=== PATIENT | male | born 1955 | race Caucasian/White ===

== ENCOUNTER 2018-03-11 20:51 | Inpatient (IN) | payer OTHER ==
[~2018-03-11] VITALS: Ht 170.2 cm; Wt 78.8 kg
[2018-03-11 20:55] VITALS: BP 129/82; PULSE 120; RESP 20; O2SAT 98
[2018-03-11 21:15] VITALS: BP 138/80; PULSE 121; RESP 15; O2SAT 99
[2018-03-11 21:30] VITALS: BP 133/82; PULSE 118; RESP 18; O2SAT 99
[2018-03-11 22:00] VITALS: BP 139/83; PULSE 120; RESP 15; O2SAT 98
--- NOTE | 2018-03-11 22:17 | RADRPT ---
EXAM DATE: 03/11/2018 9:48 PM EDT AGE/SEX: 62 years / Male INDICATIONS: Trauma to chest after patient fell from roof today CLINICAL DATA: This is the patient's initial encounter. Patient reports that signs and symptoms have been present for 1 day and indicates a pain score of Nonresponsive. MEDICAL/SURGICAL HISTORY: Non-responsive. Non-responsive. COMPARISON: No prior exams available for comparison. FINDINGS: No pneumothorax. Fracture superior scapula on the right and possibly on the left. No effusion. No con solidation. Heart size within normal limits. CONCLUSION: No pneumothorax or significant effusion. Probable superior scapular fractures. Electronically signed by: Jake Thomas MD 03/11/2018 10:16 PM EDT
[2018-03-11 22:30] VITALS: BP 148/81; PULSE 120; RESP 15; O2SAT 99
[2018-03-11] MEDS ORDERED: MORPHINE SULFATE 4 MG/ML INJ IV PUSH ONE (22:30)
[2018-03-11 22:31] LABS: BASOPHIL % 0.1 % (0.0-2.0); EOSINOPHIL % 0.1 % (0.0-4.0); HEMOGLOBIN 14.7 GM/DL (13.0-17.0); LYMPH % 3.4 % (9.0-44.0); LYMPHOCYTE # 0.4 TH/MM3 (1.0-4.8); MEAN CELL VOLUME 90.5 FL (80.0-100.0); MEAN CORPUSCULAR HEMOGLOBIN 31.8 PG (27.0-34.0); MEAN CORPUSCULAR HGB CONC 35.1 % (32.0-36.0); MEAN PLATELET VOLUME 8.9 FL (7.0-11.0); MONO % 4.8 % (0.0-8.0); MONOCYTE # 0.6 TH/MM3 (0-0.9); NEUT % 91.6 % (16.0-70.0); PLATELET COUNT 207 TH/MM3 (150-450); RED BLOOD COUNT 4.63 MIL/MM3 (4.50-5.90); RED CELL DISTRIBUTION WIDTH 13.5 % (11.6-17.2); WHITE BLOOD COUNT 13.1 TH/MM3 (4.0-11.0)
[2018-03-11 22:50] LABS: ALBUMIN 3.4 GM/DL (3.4-5.0); AST (GOT) 301 U/L (15-37); BICARBONATE 18.9 MEQ/L (21.0-32.0); BLOOD UREA NITROGEN 23 MG/DL (7-18); CALCIUM 8.3 MG/DL (8.5-10.1); CHLORIDE 108 MEQ/L (98-107); CREATININE 1.01 MG/DL (0.60-1.30); GLOMERULAR FILTRATION RATE 75 ML/MIN (>89); GLUCOSE,RANDOM 110 MG/DL (74-106); SODIUM (NA) 140 MEQ/L (136-145)
[2018-03-11 22:51] LABS: ALT (GPT) 173 U/L (12-78)
[2018-03-11 22:53] LABS: ALKALINE PHOSPHATASE 76 U/L (45-117); TOTAL BILIRUBIN ADULT 0.7 MG/DL (0.2-1.0); TOTAL PROTEIN 6.4 GM/DL (6.4-8.2)
[2018-03-11 23:00] VITALS: BP 130/82; PULSE 117; RESP 13; O2SAT 99
[2018-03-12] VITALS (12 sets, daily range): BP systolic 122–166; BP diastolic 70–89; PULSE 109–131; RESP 13–18; TEMP 97.3–98.3; O2SAT 92–100
[2018-03-12] MEDS ORDERED: IOHEXOL 350 MG/ML 10 ML VIAL (for RAD DIAG) IVCONTRAST ONE (00:03)
--- NOTE | 2018-03-12 00:11 | RADRPT ---
EXAM DATE: 03/12/2018 12:03 AM EDT AGE/SEX: 62 years / Male INDICATIONS: Trauma; patient fell from a roof. CLINICAL DATA: This is the patient's initial encounter. Patient reports that signs and symptoms have been present for 1 day and indicates a pain score of 10/10. MEDICAL/SURGICAL HISTORY: None. None. RADIATION DOSE: 18.46 CTDI (mGy) ; Combined studies COMPARISON: No prior exams available for comparison. TECHNIQUE: Multiple contiguous axial images were obtained through the chest during bolus infusion of 96 ml Omnipaque 350 (iohexol) nonionic water-soluble contrast as a cumulative dose for multiple exa ms. Images were obtained in suspended respiration using multiple row detector helical technique. U sing automated exposure control and adjustment of the mA and/or kV according to patient size, radiati on dose was kept as low as reasonably achievable to obtain optimal diagnostic quality images. FINDINGS: Lungs: Dependent bibasilar densities. Paraseptal emphysema. Mediastinum: There is good visualization of the great vessels of the middle mediastinum. No evidenc e of mediastinal or hilar adenopathy/mass. Pleurae: No evidence of focal thickening or pleural effusion. Axillae: Unremarkable. Bony Structures: There is fracture of the L1 transverse process on the left. There is fracture of th e T11 vertebral body anteriorly on the left. There is also minimal fracture of T12 on the left.. Miscellaneous: The examination was extended to include the upper abdomen, and both adrenal glands ar e normal in size and configuration. CONCLUSION: 1. Minimal fractures of T11 and T12 vertebral bodies. 2. Fracture of the left L1 transverse process. 3. Dependent bibasilar densities likely atelectasis. Electronically signed by: Samy Herr MD 03/12/2018 12:10 AM EDT
--- NOTE | 2018-03-12 00:17 | RADRPT ---
EXAM DATE: 03/12/2018 12:07 AM EDT AGE/SEX: 62 years / Male INDICATIONS: Trauma; patient fell from a roof. CLINICAL DATA: This is the patient's initial encounter. Patient reports that signs and symptoms have been present for 1 day and indicates a pain score of 10/10. MEDICAL/SURGICAL HISTORY: None. None. ORAL CONTRAST: No oral contrast ingested. RADIATION DOSE: 18.46 CTDI (mGy) COMPARISON: No prior exams available for comparison. TECHNIQUE: Multiple contiguous axial images were obtained through the abdomen and pelvis following b olus infusion of 96 ml Omnipaque 350 (iohexol) nonionic water-soluble contrast as a cumulative dose for multiple exams. No oral contrast ingested. Using automated exposure control and adjustment of t he mA and/or kV according to patient size, the radiation dose was kept as low as reasonably achievabl e to obtain optimal diagnostic quality images. FINDINGS: Lower Lungs: The visualized lower lungs are clear. Liver: The liver has a homogeneous density without space-occupying lesion. There is no dilation of th e biliary tree. Spleen: Homogeneous density without enlargement. Pancreas: Unremarkable without mass or calcification. Kidneys: Normal in size and shape. There is mild hydronephrosis on the left secondary to a proximal left ureteral calculus measuring 9 x 7 mm.. Adrenal Glands: Unremarkable. Aorta: The aorta and proximal iliac vessels are grossly unremarkable without aneurysmal dilation. Bowel/Mesentery: The bowel loops are grossly unremarkable. The cecum and sigmoid colon have a normal configuration. Abdominal Wall: Intact. Retroperitoneum: No evidence of adenopathy in the retrocrural, para-aortic, or deep pelvic regions. Bladder: Contours are smooth. Mildly distended. Reproductive Organs: No abnormal masses or calcifications seen. Inguinal: The inguinal region is unremarkable without evidence of adenopathy. Bony Structures: There is extensive fracture of L2 vertebral body with retropulsion of posterior fra gments compromising spinal canal 50%. There are fractures of the transverse processes at L1, L2, L3-L 4 on the left. There are fractures of T11, T12 and L1 vertebral bodies. CONCLUSION: 1. Fractures of T11, T12, L1 and L2 vertebral bodies. Fracture is more sensitive of L2 vertebral bod y. 2. Mild hydronephrosis on the left secondary to left proximal ureteral calculus measuring 9 x 7 mm. 3. Mild distention of the urinary bladder. 4. Multiple left-sided transverse process fractures. Electronically signed by: Samy Herr MD 03/12/2018 12:16 AM EDT
[2018-03-12] MEDS ORDERED: SODIUM CHLOR 0.9% 1000 ML INJ 1,000 ML IV SCH (00:53)
[2018-03-12] MEDS ORDERED: NALOXONE HCL 0.4 MG/ML AMP IV PUSH PRN (01:00)
[2018-03-12] MEDS ORDERED: Post-op Orders (for Pharmacy) XX ONE (01:00)
[2018-03-12] MEDS ORDERED: oxyCODONE/ACETAMINOPHEN 5 MG/325 MG TAB PO PRN (01:00)
[2018-03-12] MEDS ORDERED: SODIUM CHLORIDE 0.9% FLUSH 10 ML FLUSH IV FLUSH PRN (01:00)
[2018-03-12] MEDS ORDERED: ONDANSETRON ODT 4 MG TAB PO PRN (01:15)
[2018-03-12] MEDS: MORPHINE SULFATE 4 MG/ML INJ IV PUSH PRN ×3 (01:38→08:43)
--- NOTE | 2018-03-12 02:14 | PD ---
HPI Chief Complaint: Back/ Neck Pain or Injury Time Seen by Provider: 21:11 Travel History International Travel<30 days: No Contact w/Intl Traveler<30days: No Traveled to known affect area: No History of Present Illness HPI 62-year-old male received as a trauma transfer from another facility after falling off a ladder. Patient had a head and neck CT at the other facility and x-rays which demonstrated possible spinal fractures. The patient was transferred to our trauma center and and accepted by Dr. Lacy - requested that the scans be done at our facility. Patient is complaining only of back pain. [facility] Social History Alcohol Use: No Tobacco Use: Yes Substance Use: No Allergies-Medications (Allergen,Severity, Reaction): Coded Allergies: No Known Allergies (Unverified , 03/11/18) Reported Meds & Prescriptions Reported Meds & Active Scripts Active No Active Prescriptions or Reported Medications Review of Systems Except as stated in HPI: all other systems reviewed are Neg Musculoskeletal: Positive: Pain (Low back pain) Physical Exam Narrative GENERAL: 62-year-old male in moderate distress secondary to pain. He arrives tachycardic SKIN: Focused skin assessment warm/dry. HEAD: Atraumatic. Normocephalic. EYES: Pupils equal and round. No scleral icterus. No injection or drainage. ENT: No nasal bleeding or discharge. Mucous membranes pink and moist. NECK: Trachea midline. No JVD. CARDIOVASCULAR: Regular rate and rhythm. No murmur appreciated. RESPIRATORY: No accessory muscle use. Clear to auscultation. Breath sounds equal bilaterally. GASTROINTESTINAL: Abdomen soft, non-tender, nondistended. Hepatic and splenic margins not palpable. MUSCULOSKELETAL: Pain in the lower thoracic and upper lumbar region, pain right upper back - painful leg movement NEUROLOGICAL: Awake and alert. No obvious cranial nerve deficits. Motor grossly within normal limits. Normal speech. PSYCHIATRIC: Appropriate mood and affect; insight and judgment normal. (Head and C-spine CT performed at transferring hospital) Data Data Last Documented VS Vital Signs Date Time Temp Pulse Resp B/P (MAP) Pulse Ox O2 Delivery O2 Flow Rate FiO2 03/12/18 01:00 122 13 136/82 (100) 98 Nasal Cannula 2.00 Orders Orders Complete Blood Count With Diff (03/11/18 21:16) Comprehensive Metabolic Panel (03/11/18 21:16) Ua Includes Microscopic (03/11/18 21:16) Chest, Single Ap (03/11/18 ) Ct Thorax/ Chest W Iv Contrast (03/11/18 ) Ct Abd/Pel W Iv Contrast(Rout) (03/11/18 ) Morphine Inj (Morphine Inj) (03/11/18 22:30) Admit To Inpatient (03/12/18 ) Code Status (03/12/18 00:53) Vital Signs (Adult) Q4H (03/12/18 00:53) Activity Bed Rest (03/12/18 00:53) Intake + Output SOL.QSHIFT (03/12/18 00:53) Sodium Chlor 0.9% 1000 Ml Inj (Ns 1000 M (03/12/18 00:53) Sodium Chloride 0.9% Flush (Ns Flush) (03/12/18 01:00) Sodium Chloride 0.9% Flush (Ns Flush) (03/12/18 09:00) Famotidine (Pepcid) (03/12/18 09:00) Resp Incentive Spirometry (03/12/18 ) Post-Op Orders (For Pharmacy) (Misc Post (03/12/18 01:00) Oxycodone-Acetamin 5-325 Mg (Percocet (03/12/18 01:00) Naloxone Inj (Narcan Inj) (03/12/18 01:00) Scd Bilateral/Knee High SOL.QSHIFT (03/12/18 00:53) Inpatient Certification (03/12/18 ) Consult Neurosurgery (03/12/18 ) Morphine Inj (Morphine Inj) (03/12/18 01:15) Ondansetron Odt (Zofran Odt) (03/12/18 01:15) Admit Order (Ed Use Only) (03/12/18 ) Shingle Catcher / Telemetry SOL.Q8H (03/12/18 01:05) Vital Signs (Adult) Q4H (03/12/18 01:05) Diet Npo (03/12/18 Breakfast) Activity Bed Rest (03/12/18 01:05) Notify Dr: Other (03/12/18 01:05) Labs Laboratory Tests Test 03/11/18 21:00 White Blood Count 13.1 TH/MM3 Red Blood Count 4.63 MIL/MM3 Hemoglobin 14.7 GM/DL Hematocrit 42.0 % Mean Corpuscular Volume 90.5 FL Mean Corpuscular Hemoglobin 31.8 PG Mean Corpuscular Hemoglobin Concent 35.1 % Red Cell Distribution Width 13.5 % Platelet Count 207 TH/MM3 Mean Platelet Volume 8.9 FL Neutrophils (%) (Auto) 91.6 % Lymphocytes (%) (Auto) 3.4 % Monocytes (%) (Auto) 4.8 % Eosinophils (%) (Auto) 0.1 % Basophils (%) (Auto) 0.1 % Neutrophils # (Auto) 12.0 TH/MM3 Lymphocytes # (Auto) 0.4 TH/MM3 Monocytes # (Auto) 0.6 TH/MM3 Eosinophils # (Auto) 0.0 TH/MM3 Basophils # (Auto) 0.0 TH/MM3 CBC Comment DIFF FINAL Differential Comment Blood Urea Nitrogen 23 MG/DL Creatinine 1.01 MG/DL Random Glucose 110 MG/DL Total Protein 6.4 GM/DL Albumin 3.4 GM/DL Calcium Level 8.3 MG/DL Alkaline Phosphatase 76 U/L Aspartate Amino Transf (AST/SGOT) 301 U/L Alanine Aminotransferase (ALT/SGPT) 173 U/L Total Bilirubin 0.7 MG/DL Sodium Level 140 MEQ/L Potassium Level 4.1 MEQ/L Chloride Level 108 MEQ/L Carbon Dioxide Level 18.9 MEQ/L Anion Gap 13 MEQ/L Estimat Glomerular Filtration Rate 75 ML/MIN MDM Medical Decision Making Medical Screen Exam Complete: Yes Emergency Medical Condition: Yes Differential Diagnosis spinal cord fractures Narrative Course patient was received in transfer (accepted by Dr Lacy) and seen in the ER. He was found to have multiple vertebral body fractures and admitted to trauma services Diagnosis Primary Impression: L1 vertebral fracture Qualified Codes: S32.019A - Unspecified fracture of first lumbar vertebra, initial encounter for closed fracture Additional Impressions: L2 vertebral fracture Qualified Codes: S32.029A - Unspecified fracture of second lumbar vertebra, initial encounter for closed fracture T11 vertebral fracture Qualified Codes: S22.089A - Unspecified fracture of t11-T12 vertebra, initial encounter for closed fracture T12 vertebral fracture Qualified Codes: S22.089A - Unspecified fracture of t11-T12 vertebra, initial encounter for closed fracture Right scapula fracture Qualified Codes: S42.101A - Fracture of unspecified part of scapula, right shoulder, initial encounter for closed fracture Multiple transverse process fractures Admitting Information Admitting Physician Requests: Admit Scripts No Active Prescriptions or Reported Meds Bibi Alfonso DO Mar 12, 2018 02:14
[2018-03-12] MEDS ORDERED: LACTATED RINGER'S 1000 ML IV PRN (04:00)
[2018-03-12] MEDS ORDERED: CHLORHEXIDINE GLUCONATE 2 % 1 PACK (2 CLOTHS) TOPICAL PRN (04:00)
[2018-03-12] MEDS ORDERED: SODIUM CHLORID 0.9% 500 ML IV PRN (04:00)
[2018-03-12] MEDS ORDERED: POVIDONE IODINE 5% (ANTISEPSIS KIT) 4 APPLICATIONS EACH NARE PRN (04:00)
[2018-03-12] MEDS ORDERED: LACTULOSE SYRUP 20 GM/30 ML CUP PO PRN (07:45)
[2018-03-12] MEDS ORDERED: BISACODYL 10 MG SUPP RECTAL PRN (07:45)
[2018-03-12] MEDS: MAGNESIUM HYDROXIDE SUSP 30 ML CUP PO SCH ×2 (08:00→20:19)
[2018-03-12] MEDS: SODIUM CHLORIDE 0.9% FLUSH 10 ML FLUSH IV FLUSH SCH ×2 (08:46→20:19)
[2018-03-12] MEDS: DOCUSATE SODIUM 50 MG/SENNA 8.6 MG TAB PO SCH ×2 (08:47→20:19)
[2018-03-12] MEDS: FAMOTIDINE 20 MG TAB PO SCH ×2 (08:47→20:19)
--- NOTE | 2018-03-12 10:57 | OTSOAPIP ---
RECEIVED OCCUPATIONAL THERAPY ORDERS. PATIENT JUST ADMITTED THIS DATE AFTER A FALL OFF A LADDER SUSTAINING T11, T12, L1, AND L2 FRACTURES WELL A FRACTURE OF SUPERIOR SCAPULA ON THE RIGHT AND POSSIBLY ON THE LEFT. PATIENT IS CURRENTLY ON BED REST ORDERS AWAITING ORTHOPEDIC AND NEUROSURGERY CONSULTATIONS. WILL HOLD EVALUATION THIS DATE AND FOLLOW UP TOMORROW. INTERDISCIPLINARY COMMUNICATION: REVIEWED ELECTRONIC MEDICAL RECORD, SPOKE WITH RN Therapist: Mariam Curiel, OTR/L Signature on file
--- NOTE | 2018-03-12 11:34 | PD.CONS ---
History of Present Illness Service Neurosurgery Consult Requested By Trauma surgery Reason for Consult Thoracic and lumbar vertebral body fracture Primary Care Physician No Primary Care Physician Diagnoses: History of Present Illness 62-year-old gentleman who was brought to [facility] for trauma evaluation after a fall from a ladder/roof. He was initially seen at [facility] and found to have thoracic and lumbar fractures and transferred to [facility] trauma surgery service and neurosurgery consulted this morning. He is also awaiting orthopedic evaluation for possible right scapular fracture. His main complaint is right shoulder and scapular area pain as well as low back pain. He denies any numbness or paresthesias in the upper lower extremities. No weakness in the legs and no incontinence. He has been on bedrest. Review of Systems Constitutional: DENIES: Diaphoretic episodes, Fatigue, Fever, Weight gain, Weight loss, Chills, Dizziness, Change in appetite, Night Sweats Endocrine: DENIES: Heat/cold intolerance, Polydipsia, Polyuria, Polyphagia Eyes: DENIES: Blurred vision, Diplopia, Eye inflammation, Eye pain, Vision loss , Photosensitivity, Double Vision Ears, nose, mouth, throat: DENIES: Tinnitus, Hearing loss, Vertigo, Nasal discharge, Oral lesions, Throat pain, Hoarseness, Ear Pain, Running Nose, Epistaxis, Sinus Pain, Toothache, Odynophagia Respiratory: DENIES: Apneas, Cough, Snoring, Wheezing, Hemoptysis, Sputum production, Shortness of breath Cardiovascular: DENIES: Chest pain, Palpitations, Syncope, Dyspnea on Exertion , PND, Lower Extremity Edema, Orthopnea, Claudication Gastrointestinal: DENIES: Abdominal pain, Black stools, Bloody stools, Constipation, Diarrhea, Nausea, Vomiting, Difficulty Swallowing, Anorexia Genitourinary: DENIES: Sexual dysfunction, Urinary frequency, Urinary incontinence, Urgency, Hematuria, Dysuria, Nocturia, Penile Discharge, Testicular Pain, Testicular Swelling Musculoskeletal: COMPLAINS OF: Joint pain (Right shoulder and scapular area pain with limitation in range of motion), Muscle aches, Stiffness, Back pain, DENIES: Joint Swelling, Neck pain Integumentary: DENIES: Abnormal pigmentation, Nail changes, Pruritus, Rash Hematologic/lymphatic: DENIES: Bruising, Lymphadenopathy Immunologic/allergic: DENIES: Eczema, Urticaria Neurologic: DENIES: Abnormal gait, Headache, Localized weakness, Paresthesias, Seizures, Speech Problems, Tremor, Poor Balance Psychiatric: DENIES: Anxiety, Confusion, Mood changes, Depression, Hallucinations, Agitation, Suicidal Ideation, Homicidal Ideation, Delusions Past Family Social History Allergies: Coded Allergies: No Known Allergies (Unverified , 03/11/18) Past Medical History None reported Reported Medications No Active Prescriptions or Reported Medications Active Ordered Medications Current Medications Medications (Trade) Dose Ordered Sig/Renita Route PRN Reason Start Time Stop Time Status Last Admin Dose Admin Sodium Chloride 1,000 ml @ 100 mls/hr Q10H IV 03/12/18 00:53 03/12/18 01:39 Sodium Chloride (NS Flush) 2 ml UNSCH PRN IV FLUSH FLUSH AFTER USING IV ACCESS 03/12/18 01:00 03/12/18 01:39 Sodium Chloride (NS Flush) 2 ml BID IV FLUSH 03/12/18 09:00 Ondansetron HCl (Zofran Odt) 4 mg Q6H PRN PO NAUSEA OR VOMITING 03/12/18 01:15 03/12/18 02:51 Famotidine (Pepcid) 20 mg BID PO 03/12/18 09:00 Oxycodone/ Acetaminophen (Percocet 5-325 Mg) 1 tab Q4H PRN PO PAIN SCALE 3 TO 5 03/12/18 01:00 Morphine Sulfate (Morphine Inj) 4 mg Q3H PRN IV PUSH PAIN SCALE 6 TO 10 03/12/18 01:15 03/12/18 08:43 Naloxone HCl (Narcan Inj) 0.4 mg UNSCH PRN IV PUSH SEE LABEL COMMENTS 03/12/18 01:00 Lactated Ringer's 1,000 ml @ 30 mls/hr Q24H PRN IV SEE LABEL COMMENTS 03/12/18 04:00 03/15/18 03:59 Sodium Chloride 500 ml @ 30 mls/hr [id number] PRN IV SEE LABEL COMMENTS 03/12/18 04:00 03/15/18 03:59 Povidone Iodine (Betadine 5% Antisepsis Kit) 1 applic HAT STOCK LAMINATING MACHINE OPERATOR PRN EACH NARE SEE LABEL COMMENTS 03/12/18 04:00 03/15/18 03:59 Chlorhexidine Gluconate (Chlorhexidine 2% Cloth) 3 pack HAT STOCK LAMINATING MACHINE OPERATOR PRN TOPICAL SEE LABEL COMMENTS 03/12/18 04:00 03/15/18 03:59 Senna/Docusate Sodium (Nicole-Colace) 1 tab BID PO 03/12/18 09:00 Magnesium Hydroxide (Milk Of Magnesia Liq) 30 ml Q12H PO 03/12/18 08:00 Sennosides (Senokot) 17.2 mg Q12H PRN PO Moderate constipation 03/12/18 07:45 Bisacodyl (Dulcolax Supp) 10 mg DAILY PRN RECTAL SEVERE CONSITIPATION 03/12/18 07:45 Lactulose (Lactulose Liq) 30 ml DAILY PRN PO SEVERE CONSITIPATION 03/12/18 07:45 Family History Unremarkable Social History gentleman who resides in [place]. He is . Smokes and drinks alcohol on daily basis. Physical Exam Vital Signs Vital Signs Date Time Temp Pulse Resp B/P (MAP) Pulse Ox O2 Delivery O2 Flow Rate FiO2 03/12/18 08:48 18 03/12/18 08:00 97.3 110 18 166/88 (114) 97 03/12/18 04:00 97.8 109 18 122/89 (100) 95 03/12/18 03:59 Nasal Cannula 2.00 03/12/18 02:30 97.9 118 18 122/89 (100) 92 03/12/18 01:48 100 Nasal Cannula 2.00 03/12/18 01:45 118 14 155/80 (105) 99 Nasal Cannula 2.00 03/12/18 01:30 120 15 160/78 (105) 100 Nasal Cannula 2.00 03/12/18 01:00 122 13 136/82 (100) 98 Nasal Cannula 2.00 03/12/18 00:30 120 15 142/82 (102) 99 Nasal Cannula 2.00 03/11/18 23:00 117 13 130/82 (98) 99 Nasal Cannula 2.00 03/11/18 22:30 120 15 148/81 (103) 99 Nasal Cannula 2.00 03/11/18 22:00 120 15 139/83 (101) 98 Nasal Cannula 2.00 03/11/18 21:30 118 18 133/82 (99) 99 Nasal Cannula 2.00 03/11/18 21:15 121 15 138/80 (99) 99 Nasal Cannula 2.00 03/11/18 20:55 120 20 129/82 (98) 98 Physical Exam GENERAL: This is a well-nourished, well-developed patient, in no apparent distress. SKIN: No rashes, ecchymoses or lesions. Cool and dry. HEAD: Atraumatic. Normocephalic. No temporal or scalp tenderness. EYES: Pupils equal round and reactive. Extraocular motions intact. No scleral icterus. No injection or drainage. ENT: Nose without bleeding, purulent drainage or septal hematoma. Throat without erythema, tonsillar hypertrophy or exudate. Uvula midline. Airway patent. NECK: Trachea midline. No JVD or lymphadenopathy. Supple, nontender, no meningeal signs. CARDIOVASCULAR: Regular rate and rhythm without murmurs, gallops, or rubs. RESPIRATORY: Clear to auscultation. Breath sounds equal bilaterally. No wheezes , rales, or rhonchi. GASTROINTESTINAL: Abdomen soft, non-tender, nondistended. No hepato-splenomegaly , or palpable masses. No guarding. MUSCULOSKELETAL: Extremities without clubbing, cyanosis, or edema. Limited range of motion in the right shoulder and proximal upper extremity because of the shoulder and scapular area pain. No calf tenderness. Negative Homans sign bilaterally. NEUROLOGICAL: Awake and alert. Cranial nerves II through XII intact. Motor and sensory grossly within normal limits. Five out of 5 muscle strength in all muscle groups. Normal speech. Laboratory Laboratory Tests Test 03/11/18 21:00 White Blood Count 13.1 Red Blood Count 4.63 Hemoglobin 14.7 Hematocrit 42.0 Mean Corpuscular Volume 90.5 Mean Corpuscular Hemoglobin 31.8 Mean Corpuscular Hemoglobin Concent 35.1 Red Cell Distribution Width 13.5 Platelet Count 207 Mean Platelet Volume 8.9 Neutrophils (%) (Auto) 91.6 Lymphocytes (%) (Auto) 3.4 Monocytes (%) (Auto) 4.8 Eosinophils (%) (Auto) 0.1 Basophils (%) (Auto) 0.1 Neutrophils # (Auto) 12.0 Lymphocytes # (Auto) 0.4 Monocytes # (Auto) 0.6 Eosinophils # (Auto) 0.0 Basophils # (Auto) 0.0 CBC Comment DIFF FINAL Differential Comment Blood Urea Nitrogen 23 Creatinine 1.01 Random Glucose 110 Total Protein 6.4 Albumin 3.4 Calcium Level 8.3 Alkaline Phosphatase 76 Aspartate Amino Transf (AST/SGOT) 301 Alanine Aminotransferase (ALT/SGPT) 173 Total Bilirubin 0.7 Sodium Level 140 Potassium Level 4.1 Chloride Level 108 Carbon Dioxide Level 18.9 Anion Gap 13 Estimat Glomerular Filtration Rate 75 Result Diagram: 03/11/18 2100 03/11/18 2100 Imaging Last Impressions Chest X-Ray 03/11/18 0000 Signed Impressions: CONCLUSION: No pneumothorax or significant effusion. Probable superior scapular fractures. Chest CT 03/11/18 0000 Signed Impressions: CONCLUSION: 1. Minimal fractures of T11 and T12 vertebral bodies. 2. Fracture of the left L1 transverse process. 3. Dependent bibasilar densities likely atelectasis. Abdomen/Pelvis CT 03/11/18 0000 Signed Impressions: CONCLUSION: 1. Fractures of T11, T12, L1 and L2 vertebral bodies. Fracture is more sensiti ve of L2 vertebral body. 2. Mild hydronephrosis on the left secondary to left proximal ureteral calculu s measuring 9 x 7 mm. 3. Mild distention of the urinary bladder. 4. Multiple left-sided transverse process fractures. Assessment and Plan Assessment and Plan 62-year-old gentleman with L2 vertebral body fracture with retropulsion and moderate spinal stenosis. There is about 30% of vertebral body height loss noted with preserved facets. There is T11-T12 and L1 to body fractures without retropulsion. There is mild L1 superior endplate compression. He is neurologically intact. Recommend bedrest with spinal logroll precautions. He will be fitted with a custom TLSO brace. Once the brace is available he can be out of bed with the brace on prior to sitting position. We will obtain an upright x-ray with brace to ensure no significant vertebral height collapse or kyphosis with axial loading. Treatment options were discussed and patient at this time prefers conservative management. DVT prophylaxis and gastrointestinal stress ulcer prophylaxis as per trauma surgery. Román Hdez MD Mar 12, 2018 11:34
--- NOTE | 2018-03-12 12:08 | HHI.PR ---
Subjective Subjective Notes PTD: 1 Patient lying in bed. No distress noted. Patient complains of some soreness to his back and right shoulder. Patient is able to move all extremities well. Objective Vitals/I&O Vital Signs Date Time Temp Pulse Resp B/P (MAP) Pulse Ox O2 Delivery O2 Flow Rate FiO2 03/12/18 08:48 18 03/12/18 08:00 97.3 110 166/88 (114) 97 03/12/18 03:59 Nasal Cannula 2.00 Labs Laboratory Tests Test 03/11/18 21:00 White Blood Count 13.1 Red Blood Count 4.63 Hemoglobin 14.7 Hematocrit 42.0 Mean Corpuscular Volume 90.5 Mean Corpuscular Hemoglobin 31.8 Mean Corpuscular Hemoglobin Concent 35.1 Red Cell Distribution Width 13.5 Platelet Count 207 Mean Platelet Volume 8.9 Neutrophils (%) (Auto) 91.6 Lymphocytes (%) (Auto) 3.4 Monocytes (%) (Auto) 4.8 Eosinophils (%) (Auto) 0.1 Basophils (%) (Auto) 0.1 Neutrophils # (Auto) 12.0 Lymphocytes # (Auto) 0.4 Monocytes # (Auto) 0.6 Eosinophils # (Auto) 0.0 Basophils # (Auto) 0.0 CBC Comment DIFF FINAL Differential Comment Blood Urea Nitrogen 23 Creatinine 1.01 Random Glucose 110 Total Protein 6.4 Albumin 3.4 Calcium Level 8.3 Alkaline Phosphatase 76 Aspartate Amino Transf (AST/SGOT) 301 Alanine Aminotransferase (ALT/SGPT) 173 Total Bilirubin 0.7 Sodium Level 140 Potassium Level 4.1 Chloride Level 108 Carbon Dioxide Level 18.9 Anion Gap 13 Estimat Glomerular Filtration Rate 75 Radiology Last Impressions Chest X-Ray 03/11/18 0000 Signed Impressions: CONCLUSION: No pneumothorax or significant effusion. Probable superior scapular fractures. Chest CT 03/11/18 0000 Signed Impressions: CONCLUSION: 1. Minimal fractures of T11 and T12 vertebral bodies. 2. Fracture of the left L1 transverse process. 3. Dependent bibasilar densities likely atelectasis. Abdomen/Pelvis CT 6/15/18 0000 Signed Impressions: CONCLUSION: 1. Fractures of T11, T12, L1 and L2 vertebral bodies. Fracture is more sensiti ve of L2 vertebral body. 2. Mild hydronephrosis on the left secondary to left proximal ureteral calculu s measuring 9 x 7 mm. 3. Mild distention of the urinary bladder. 4. Multiple left-sided transverse process fractures. Narrative Exam GENERAL: This is a 62 year old male lying in bed. No distress noted. SKIN: Warm and dry. HEAD: Atraumatic. Normocephalic. EYES: PERRLA ENT: No nasal bleeding or discharge. Mucous membranes pink and moist. NECK: Trachea midline. No JVD. CARDIOVASCULAR: Regular rate and rhythm. RESPIRATORY: No accessory muscle use. Lungs are clear to auscultation. Breath sounds equal bilaterally. No distress or dyspnea. GASTROINTESTINAL: BS + x 4 quads. Abdomen soft, non-tender, nondistended. MUSCULOSKELETAL: Extremities without cyanosis, or edema. + peripheral pulses x 4 extremities. Warm with good capillary refill and sensation. MAEW and to command. NEUROLOGICAL: Awake and alert. Normal speech and pattern. A/P Problem List: (1) Right scapula fracture ICD Codes: S42.101A - Fracture of unspecified part of scapula, right shoulder, initial encounter for closed fracture Status: Acute (2) T11 vertebral fracture ICD Codes: S22.089A - Unspecified fracture of T11-T12 vertebra, initial encounter for closed fracture Status: Acute (3) T12 vertebral fracture ICD Codes: S22.089A - Unspecified fracture of T11-T12 vertebra, initial encounter for closed fracture Status: Acute (4) L1 vertebral fracture ICD Codes: S32.019A - Unspecified fracture of first lumbar vertebra, initial encounter for closed fracture Status: Acute (5) L2 vertebral fracture ICD Codes: S32.029A - Unspecified fracture of second lumbar vertebra, initial encounter for closed fracture Status: Acute (6) Multiple transverse process fractures Status: Acute Assessment and Plan [place]: This is a 62-year-old male who sustained a fall from a ladder. He was a trauma transfer. INJURIES: RIGHT scapula fx ?LEFT scapula fx T11, T12, L1 & L2 vertebral body fx L2 extensive fx w/ retropulsion of posterior fragments and 50% spinal canal compromise. L1-L4 transverse process fx on LEFT PMHx: Smoker. Procedures: Consults: Neurosurgery. Orthopedics. Case management. Diet: Regular diet. Tolerating po diet. Encourage good po intake with each meal. Pulmonary: Encourage good pulmonary toileting. IS at bedside and pt encouraged to use. Rationale for use explained to patient, and verbalized understanding. PAIN Management: Increased to Percocet to 5- 10mg q 4h. Morphine 4 mg q 3h for breakthrough pain. Activity: BR - log roll. PT and OT ordered. (WBS? - sling) TLSO brace. GI prophylaxis: Pepcid 20 mg BID PO Bowel regimen: Nicole-colace. MOM. Lactulose PRN. Senna PRN. Bisacodyl PRN. LBM: 0 DVT prophylaxis: Mechanical VTE with SCDs. Chemical management with Lovenox 40 mg QD SQ. DC Planning: Case management consulted for assistance with final discharge disposition. Emotional support provided to patient at bedside and plan of care discussed. Discussed with RN at bedside. Discussed pt condition and plan of care with collaborating trauma surgeon. Patient is hemodynamically stable and being managed on the med/surg floor. The trauma team will round each day, and evaluate plan of care on a daily basis. RIGHT scapula fx ?LEFT scapula fx Orthopedics consulted and assisting in management care Supportive care Pain management Sling to right upper extremity for comfort and support PT and OT ordered Await weightbearing status from orthopedics to bilateral upper extremities T11, T12, L1 & L2 vertebral body fx L2 extensive fx w/ retropulsion of posterior fragments and 50% spinal canal compromise. L1-L4 transverse process fx on LEFT Neurosurgery consulted and assisting in management care Supportive care Pain management Currently on bedrest Logroll only TLSO brace ordered Attending Statement The exam, history, and the medical decision-making described in the above note were completed with the assistance of the mid-level provider. I reviewed and agree with the findings presented. I attest that I had a [id number] encounter with the patient on the same day, and personally performed and documented my assessment and findings in the medical record. multiple T spine fractures, neurologically intact F/U NS recs pain control exam shows 5/5 strength X4 ext. Problem Qualifiers (1) Right scapula fracture: Qualified Codes: S42.101A - Fracture of unspecified part of scapula, right shoulder, initial encounter for closed fracture (2) T11 vertebral fracture: Qualified Codes: S22.089A - Unspecified fracture of t11-T12 vertebra, initial encounter for closed fracture (3) T12 vertebral fracture: Qualified Codes: S22.089A - Unspecified fracture of t11-T12 vertebra, initial encounter for closed fracture (4) L1 vertebral fracture: Qualified Codes: S32.019A - Unspecified fracture of first lumbar vertebra, initial encounter for closed fracture (5) L2 vertebral fracture: Qualified Codes: S32.029A - Unspecified fracture of second lumbar vertebra, initial encounter for closed fracture Jennifer Santana Mar 12, 2018 12:08 Domenic Clark MD Mar 12, 2018 19:55
--- NOTE | 2018-03-12 12:50 | MH ---
cc: Miranda Romero MD DATE OF ADMISSION: 03/12/2018 ADMITTING DIAGNOSIS: Fall from a ladder and fracture of the thoracolumbar vertebra. HISTORY OF PRESENT ILLNESS: This 62-year-old male was initially seen in [facility] earlier today and I received a call to accept the patient transfer, which was readily done. The patient apparently fell off a ladder, was worked up partially at the other hospital with plain films and CT of the head and neck, which did not reveal any abnormalities. After discussing this with the physician over there, I felt it was more appropriate to have the rest of the studies done here. Unfortunately, it took another 10 hours to get the patient transferred to our institution, although the patient arrives alert, awake and stable, complaining of back pain. PAST MEDICAL HISTORY: None. PAST SURGICAL HISTORY: The patient denies any. MEDICATION: None. ALLERGIES: NONE. SOCIAL HISTORY: He smokes about a pack a day. PHYSICAL EXAMINATION: GENERAL: Reveals a 63-year-old gentleman in no acute distress. HEENT: Head normocephalic. No trauma due to the head. Pupils equal, reactive. Extraocular muscles intact. Sclerae nonicteric. No hemotympanum. No snyder sign. No raccoon's eyes. NECK: Bilateral carotid pulses. No bruits. CHEST: Bilateral breath sounds. HEART: Regular rhythm; however, the patient is in sinus tachycardia, about 110. ABDOMEN: Soft. No rebound, no guarding, no masses. NEUROLOGIC: The patient is fully intact. CN 2-12 normal. Ro coma scale is 15. The patient motion is intact, although has back pain when moving his legs. EXTREMITIES: Bilateral femoral, popliteal, dorsalis pedis and posterior femoral pulses. No signs of vascular acute injury. IMPRESSION AND RECOMMENDATIONS: A 62-year-old gentleman that fell off a roof, diagnosed right now with fractures of T11, T12, L1 and L2. While T11 ____ do not seem to have any spondylolisthesis or motion or retropulsion, the L2 seems to be compressed about 20-30 percent down. At this point, the patient will be admitted, treated as per trauma principals. Neurosurgery was consulted. The patient will likely require a TLSO brace and depending on symptoms, will be discharged. There is always a possibility of needing surgery for this. I will leave it up to the neurosurgeon. There is incidental finding of a left urethral calculus measuring about 9 mm, but this is now on the back burner. MD TANESHA Chinchilla/TRISTEN , 11:46 AM , 12:50 PM
[2018-03-12] MEDS: ENOXAPARIN SODIUM 40 MG/0.4 ML SYRINGE SQ SCH (13:46)
[2018-03-12] MEDS: oxyCODONE/ACETAMINOPHEN 10 MG/325 MG TAB PO PRN ×2 (16:29→20:19)
[2018-03-13] VITALS (9 sets, daily range): BP systolic 124–157; BP diastolic 82–93; PULSE 100–134; RESP 17–19; TEMP 97.4–98.4; O2SAT 91–97
[2018-03-13] MEDS: oxyCODONE/ACETAMINOPHEN 10 MG/325 MG TAB PO PRN ×3 (04:20→19:39)
[2018-03-13 06:00] LABS: AUTOMATED NEUTROPHIL # 7.8 TH/MM3 (1.8-7.7); BASOPHIL % 0.1 % (0.0-2.0); EOSINOPHIL % 0.4 % (0.0-4.0); HEMATOCRIT 36.9 % (39.0-51.0); HEMOGLOBIN 12.7 GM/DL (13.0-17.0); LYMPH % 5.7 % (9.0-44.0); LYMPHOCYTE # 0.5 TH/MM3 (1.0-4.8); MEAN CELL VOLUME 91.1 FL (80.0-100.0); MEAN CORPUSCULAR HEMOGLOBIN 31.5 PG (27.0-34.0); MEAN CORPUSCULAR HGB CONC 34.6 % (32.0-36.0); MEAN PLATELET VOLUME 8.4 FL (7.0-11.0); MONO % 4.9 % (0.0-8.0); MONOCYTE # 0.4 TH/MM3 (0-0.9); NEUT % 88.9 % (16.0-70.0); PLATELET COUNT 171 TH/MM3 (150-450); RED BLOOD COUNT 4.05 MIL/MM3 (4.50-5.90); RED CELL DISTRIBUTION WIDTH 13.6 % (11.6-17.2); WHITE BLOOD COUNT 8.7 TH/MM3 (4.0-11.0)
[2018-03-13 06:26] LABS: BICARBONATE 23.2 MEQ/L (21.0-32.0); CALCIUM 8.2 MG/DL (8.5-10.1); CREATININE 0.91 MG/DL (0.60-1.30)
[2018-03-13 06:28] LABS: DIRECT BILIRUBIN ADULT 0.2 MG/DL (0.0-0.2)
[2018-03-13 06:31] LABS: INDIRECT BILIRUBIN 0.6 MG/DL (0.0-0.8); TOTAL BILIRUBIN ADULT 0.8 MG/DL (0.2-1.0); TOTAL PROTEIN 6.2 GM/DL (6.4-8.2)
--- NOTE | 2018-03-13 06:40 | RADRPT ---
EXAM DATE: 03/13/2018 5:42 AM EDT AGE/SEX: 62 years / Male INDICATIONS: Follow up trauma. CLINICAL DATA: This is the patient's subsequent encounter. Patient reports that signs and symptoms h ave been present for 3 days and indicates a pain score of Nonresponsive. MEDICAL/SURGICAL HISTORY: Non-responsive. Non-responsive. COMPARISON: [facility] [place], CHEST SINGLE AP, 03/11/2018. . FINDINGS: A single AP view of the chest demonstrates the lungs to be symmetrically aerated without evidence of mass, infiltrate or effusion. The cardiomediastinal contours are unremarkable. Osseous structures a re intact. CONCLUSION: No acute cardiopulmonary disease Electronically signed by: Samy Herr MD 03/13/2018 6:39 AM EDT
[2018-03-13] MEDS: MAGNESIUM HYDROXIDE SUSP 30 ML CUP PO SCH ×2 (08:00→19:38)
[2018-03-13] MEDS: DOCUSATE SODIUM 50 MG/SENNA 8.6 MG TAB PO SCH ×2 (08:17→19:40)
[2018-03-13] MEDS: FAMOTIDINE 20 MG TAB PO SCH ×2 (08:34→19:39)
[2018-03-13] MEDS: SODIUM CHLORIDE 0.9% FLUSH 10 ML FLUSH IV FLUSH SCH ×2 (08:40→19:40)
--- NOTE | 2018-03-13 10:54 | HHI.NSPN ---
(Samy Bernard) History Chief Complaint: Low back pain controlled with bedrest. (Samy Bernard) Interval History 62-year-old gentleman who was brought to [facility] for trauma evaluation after a fall from a ladder/roof. He was initially seen at [facility] and found to have thoracic and lumbar fractures and transferred to [facility] trauma surgery service and neurosurgery consulted this morning. He is also awaiting orthopedic evaluation for possible right scapular fracture. His main complaint is right shoulder and scapular area pain as well as low back pain. He denies any numbness or paresthesias in the upper lower extremities. No weakness in the legs and no incontinence. He has been on bedrest. 03/13: Pt awake and alert. low back pain controlled with bed rest. No pain radiating into the LEs. Follows commands. Waiting on TLSO brace. (Samy Bernard) Review of Systems General: Negative for: fever, chills, insomnia Respiratory: Negative for: shortness of breath, cough, sputum Cardiovascular: Negative for: chest pain Gastrointestinal: Negative for: nausea, vomitting, diarrhea, constipation ( Samy Bernard) Exam Results Vital Signs Date Time Temp Pulse Resp B/P (MAP) Pulse Ox O2 Delivery O2 Flow Rate FiO2 03/13/18 09:35 18 03/13/18 08:00 98.2 104 149/87 (107) 94 03/12/18 22:24 Nasal Cannula 2.00 Intake and Output 03/13/18 03/13/18 03/14/18 08:00 16:00 00:00 Output Total 650 ml Balance -650 ml (Samy Bernard) Physical Examination General: Pt awake and alert resting in bed on bedrest in NAD. Eyes: Pupils equal and sclera anicteric. Resp: CTA bilaterally Heart: NSR no murmurs Abd: Soft positive bs. Skin: No cyanosis or erythema. Muscle: Moves LEs with good strength. Neuro: Pt awake and alert. Follows commands well. Face symmetric. Pupils equal. (Samy Bernard) Lab, Micro, Other Results Last Impressions Chest X-Ray 03/13/18 0600 Signed Impressions: CONCLUSION: No acute cardiopulmonary disease Chest CT 03/11/18 0000 Signed Impressions: CONCLUSION: 1. Minimal fractures of T11 and T12 vertebral bodies. 2. Fracture of the left L1 transverse process. 3. Dependent bibasilar densities likely atelectasis. Abdomen/Pelvis CT 03/11/18 0000 Signed Impressions: CONCLUSION: 1. Fractures of T11, T12, L1 and L2 vertebral bodies. Fracture is more sensiti ve of L2 vertebral body. 2. Mild hydronephrosis on the left secondary to left proximal ureteral calculu s measuring 9 x 7 mm. 3. Mild distention of the urinary bladder. 4. Multiple left-sided transverse process fractures. Laboratory Tests Test 03/13/18 05:04 White Blood Count 8.7 TH/MM3 Red Blood Count 4.05 MIL/MM3 Hemoglobin 12.7 GM/DL Hematocrit 36.9 % Mean Corpuscular Volume 91.1 FL Mean Corpuscular Hemoglobin 31.5 PG Mean Corpuscular Hemoglobin Concent 34.6 % Red Cell Distribution Width 13.6 % Platelet Count 171 TH/MM3 Mean Platelet Volume 8.4 FL Neutrophils (%) (Auto) 88.9 % Lymphocytes (%) (Auto) 5.7 % Monocytes (%) (Auto) 4.9 % Eosinophils (%) (Auto) 0.4 % Basophils (%) (Auto) 0.1 % Neutrophils # (Auto) 7.8 TH/MM3 Lymphocytes # (Auto) 0.5 TH/MM3 Monocytes # (Auto) 0.4 TH/MM3 Eosinophils # (Auto) 0.0 TH/MM3 Basophils # (Auto) 0.0 TH/MM3 CBC Comment DIFF FINAL Differential Comment Blood Urea Nitrogen 20 MG/DL Creatinine 0.91 MG/DL Random Glucose 127 MG/DL Total Protein 6.2 GM/DL Albumin 3.0 GM/DL Calcium Level 8.2 MG/DL Alkaline Phosphatase 63 U/L Aspartate Amino Transf (AST/SGOT) 39 U/L Alanine Aminotransferase (ALT/SGPT) 79 U/L Total Bilirubin 0.8 MG/DL Direct Bilirubin 0.2 MG/DL Sodium Level 136 MEQ/L Potassium Level 3.9 MEQ/L Chloride Level 103 MEQ/L Carbon Dioxide Level 23.2 MEQ/L Anion Gap 10 MEQ/L Estimat Glomerular Filtration Rate 84 ML/MIN Indirect Bilirubin 0.6 MG/DL (Samy Bernard) Medical Decision Making Impression and Plan A: 62 y/o M with L2 vertebral body fracture with retropulsion and moderate spinal stenosis. There is about 30% of vertebral body height loss noted with preserved facets. There is T11-T12 and L1 to body fractures without retropulsion. There is mild L1 superior endplate compression. He is neurologically intact. P: Bedrest with spinal logroll precautions. Custom TLSO brace. Once the brace is available he can be out of bed with the brace on prior to sitting position. We will obtain an upright x-ray with brace to ensure no significant vertebral height collapse or kyphosis with axial loading. Patient at this time prefers conservative management. Continue with DVT prophylaxis and gastrointestinal stress ulcer prophylaxis (Samy Bernard) Attending Statement The exam, history, and the medical decision-making described in the above note were completed with the assistance of the mid-level provider. I reviewed and agree with the findings presented. I attest that I had a [id number] encounter with the patient on the same day, and personally performed and documented my assessment and findings in the medical record. Bedrest until custom TLSO brace available and then out of bed with brace on prior to sitting or upright position. (Román Hdez MD) Samy Bernard Mar 13, 2018 10:54 Román Hdez MD Mar 13, 2018 11:55
--- NOTE | 2018-03-13 11:36 | HHI.PR ---
Subjective Subjective Notes PTD: 2 Pt lying in bed. No distress noted. Patient describes his pain as "3/10." He is asking when he can go home. Objective Vitals/I&O Vital Signs Date Time Temp Pulse Resp B/P (MAP) Pulse Ox O2 Delivery O2 Flow Rate FiO2 03/13/18 09:35 18 03/13/18 08:00 98.2 104 149/87 (107) 94 03/12/18 22:24 Nasal Cannula 2.00 Labs Laboratory Tests Test 03/13/18 05:04 White Blood Count 8.7 Red Blood Count 4.05 Hemoglobin 12.7 Hematocrit 36.9 Mean Corpuscular Volume 91.1 Mean Corpuscular Hemoglobin 31.5 Mean Corpuscular Hemoglobin Concent 34.6 Red Cell Distribution Width 13.6 Platelet Count 171 Mean Platelet Volume 8.4 Neutrophils (%) (Auto) 88.9 Lymphocytes (%) (Auto) 5.7 Monocytes (%) (Auto) 4.9 Eosinophils (%) (Auto) 0.4 Basophils (%) (Auto) 0.1 Neutrophils # (Auto) 7.8 Lymphocytes # (Auto) 0.5 Monocytes # (Auto) 0.4 Eosinophils # (Auto) 0.0 Basophils # (Auto) 0.0 CBC Comment DIFF FINAL Differential Comment Blood Urea Nitrogen 20 Creatinine 0.91 Random Glucose 127 Total Protein 6.2 Albumin 3.0 Calcium Level 8.2 Alkaline Phosphatase 63 Aspartate Amino Transf (AST/SGOT) 39 Alanine Aminotransferase (ALT/SGPT) 79 Total Bilirubin 0.8 Direct Bilirubin 0.2 Sodium Level 136 Potassium Level 3.9 Chloride Level 103 Carbon Dioxide Level 23.2 Anion Gap 10 Estimat Glomerular Filtration Rate 84 Indirect Bilirubin 0.6 Radiology Last 24 hours Impressions Chest X-Ray 03/13/18 0600 Signed Impressions: CONCLUSION: No acute cardiopulmonary disease Narrative Exam GENERAL: This is a 62 year old male lying in bed. No distress noted. SKIN: Warm and dry. HEAD: Atraumatic. Normocephalic. EYES: PERRLA ENT: No nasal bleeding or discharge. Mucous membranes pink and moist. NECK: Trachea midline. No JVD. CARDIOVASCULAR: Regular rate and rhythm. RESPIRATORY: No accessory muscle use. Lungs are clear to auscultation. Breath sounds equal bilaterally. No distress or dyspnea. GASTROINTESTINAL: BS + x 4 quads. Abdomen soft, non-tender, nondistended. MUSCULOSKELETAL: Extremities without cyanosis, or edema. + peripheral pulses x 4 extremities. Warm with good capillary refill and sensation. MAEW and to command. NEUROLOGICAL: Awake and alert. Normal speech and pattern. A/P Problem List: (1) Right scapula fracture ICD Codes: S42.101A - Fracture of unspecified part of scapula, right shoulder, initial encounter for closed fracture Status: Acute (2) T11 vertebral fracture ICD Codes: S22.089A - Unspecified fracture of T11-T12 vertebra, initial encounter for closed fracture Status: Acute (3) T12 vertebral fracture ICD Codes: S22.089A - Unspecified fracture of T11-T12 vertebra, initial encounter for closed fracture Status: Acute (4) L1 vertebral fracture ICD Codes: S32.019A - Unspecified fracture of first lumbar vertebra, initial encounter for closed fracture Status: Acute (5) L2 vertebral fracture ICD Codes: S32.029A - Unspecified fracture of second lumbar vertebra, initial encounter for closed fracture Status: Acute (6) Multiple transverse process fractures Status: Acute Assessment and Plan [place]: This is a 62-year-old male who sustained a fall from a ladder. He was a trauma transfer. INJURIES: RIGHT scapula fx ?LEFT scapula fx T11, T12, L1 & L2 vertebral body fx L2 extensive fx w/ retropulsion of posterior fragments and 50% spinal canal compromise. L1-L4 transverse process fx on LEFT PMHx: Smoker. Procedures: Consults: Neurosurgery. Orthopedics. Case management. Diet: Regular diet. Tolerating po diet. Encourage good po intake with each meal. Pulmonary: Encourage good pulmonary toileting. IS at bedside and pt encouraged to use. Rationale for use explained to patient, and verbalized understanding. PAIN Management: Percocet to 5- 10mg q 4h. Morphine 4 mg q 3h for breakthrough pain. Activity: BR - log roll. PT and OT ordered. (WBS? - sling) TLSO brace - awaiting brace. GI prophylaxis: Pepcid 20 mg BID PO Bowel regimen: Nicole-colace. MOM. Lactulose PRN. Senna PRN. Bisacodyl PRN. LBM: 0 DVT prophylaxis: Mechanical VTE with SCDs. Chemical management with Lovenox 40 mg QD SQ. DC Planning: Case management consulted for assistance with final discharge disposition. Emotional support provided to patient at bedside and plan of care discussed. Anticipate DC in 1-2 days once TLSO brace is obtained and pt can be evaluated by PT and OT for home DC needs. Discussed with RN at bedside. Discussed pt condition and plan of care with collaborating trauma surgeon. Patient is hemodynamically stable and being managed on the med/surg floor. The trauma team will round each day, and evaluate plan of care on a daily basis. RIGHT scapula fx ?LEFT scapula fx Orthopedics consulted and assisting in management care Supportive care Pain management Sling to right upper extremity for comfort and support PT and OT ordered Await weightbearing status from orthopedics to bilateral upper extremities T11, T12, L1 & L2 vertebral body fx L2 extensive fx w/ retropulsion of posterior fragments and 50% spinal canal compromise. L1-L4 transverse process fx on LEFT Neurosurgery consulted and assisting in management care Supportive care Pain management Currently on bedrest PT and OT ordered Logroll only TLSO brace ordered Once pt obtains a brace, he may be OOB with brace. Then he can be evaluated by PT/OT for home needs. Problem Qualifiers (1) Right scapula fracture: Qualified Codes: S42.101A - Fracture of unspecified part of scapula, right shoulder, initial encounter for closed fracture (2) T11 vertebral fracture: Qualified Codes: S22.089A - Unspecified fracture of t11-T12 vertebra, initial encounter for closed fracture (3) T12 vertebral fracture: Qualified Codes: S22.089A - Unspecified fracture of t11-T12 vertebra, initial encounter for closed fracture (4) L1 vertebral fracture: Qualified Codes: S32.019A - Unspecified fracture of first lumbar vertebra, initial encounter for closed fracture (5) L2 vertebral fracture: Qualified Codes: S32.029A - Unspecified fracture of second lumbar vertebra, initial encounter for closed fracture Jennifer Santana Mar 13, 2018 11:36
[2018-03-13] MEDS: ENOXAPARIN SODIUM 40 MG/0.4 ML SYRINGE SQ SCH (12:21)
[2018-03-13] MEDS ORDERED: MAGN30S PO (13:30)
[2018-03-13] MEDS ORDERED: PERI PO (13:30)
--- NOTE | 2018-03-13 13:50 | EKG ---
Date Performed: 03/12/2018 Time Performed: 10:57:52 PTAGE: 62 years EKG: SINUS TACHYCARDIA SEPTAL MYOCARDIAL INFARCTION , PROBABLY OLD ABNORMAL ECG NO PREVIOUS TRACING DOCTOR: Thaddeus Mart Interpretating Date/Time 03/13/2018 13:45:22
--- NOTE | 2018-03-13 14:48 | HHI.FF ---
Face to Face Verification Diagnosis: (1) Multiple transverse process fractures (2) Right scapula fracture (3) L1 vertebral fracture (4) T12 vertebral fracture (5) T11 vertebral fracture (6) L2 vertebral fracture Physical Therapy Order: Evaluate and Treat, Improve ambulation, Strength and gait training Home Health Nursing Order: Medical education Signs/symptoms of disease process Medication education-adverse effect Nursing assessment with vital signs I have seen patient Lawrence Arboleda on 03/13/18. My clinical findings support the need for the requested home health care services because: Ltd mobility - disease progression Limited ability to care for self High risk of falls I certify that my clinical findings support that this patient is homebound because: Unsteady gait/balance Unsafe to leave home unassisted Prd-[id number] bed/chair Unable to use public transportation Jennifer Santana Mar 13, 2018 14:48
[2018-03-14] VITALS (8 sets, daily range): BP systolic 128–154; BP diastolic 70–92; PULSE 100–119; RESP 12–18; TEMP 95.8–98; O2SAT 92–97
[2018-03-14] MEDS: LACTULOSE SYRUP 20 GM/30 ML CUP PO SCH (08:19)
[2018-03-14] MEDS: SODIUM CHLORIDE 0.9% FLUSH 10 ML FLUSH IV FLUSH SCH ×2 (08:19→20:02)
[2018-03-14] MEDS: MAGNESIUM HYDROXIDE SUSP 30 ML CUP PO SCH ×2 (08:19→19:58)
[2018-03-14] MEDS: FAMOTIDINE 20 MG TAB PO SCH ×2 (08:19→19:59)
[2018-03-14] MEDS: SENNOSIDES 8.6 MG TAB PO PRN ×2 (08:19→19:59)
[2018-03-14] MEDS: oxyCODONE/ACETAMINOPHEN 10 MG/325 MG TAB PO PRN ×3 (08:20→19:59)
[2018-03-14] MEDS: DOCUSATE SODIUM 50 MG/SENNA 8.6 MG TAB PO SCH ×2 (08:20→19:58)
--- NOTE | 2018-03-14 10:34 | HHI.NSPN ---
(Samy Bernard) History Chief Complaint: Low back pain controlled with bedrest. (Samy Bernard) Interval History 62-year-old gentleman who was brought to [facility] for trauma evaluation after a fall from a ladder/roof. He was initially seen at [facility] and found to have thoracic and lumbar fractures and transferred to [facility] trauma surgery service and neurosurgery consulted this morning. He is also awaiting orthopedic evaluation for possible right scapular fracture. His main complaint is right shoulder and scapular area pain as well as low back pain. He denies any numbness or paresthesias in the upper lower extremities. No weakness in the legs and no incontinence. He has been on bedrest. 03/13: Pt awake and alert. low back pain controlled with bed rest. No pain radiating into the LEs. Follows commands. Waiting on TLSO brace. 03/14/18: Pt awake and alert. Low back pain rates at 7/10 without radiculopathy in LEs. He has been up with brace on, had some dizziness. (Samy Bernard) Review of Systems General: Negative for: fever, chills, insomnia Respiratory: Negative for: shortness of breath, cough, sputum Cardiovascular: Negative for: chest pain Gastrointestinal: Negative for: nausea, vomitting, diarrhea, constipation ( Samy Bernard) Exam Results Vital Signs Date Time Temp Pulse Resp B/P (MAP) Pulse Ox O2 Delivery O2 Flow Rate FiO2 03/14/18 08:00 95.8 105 15 138/90 (106) 95 03/14/18 07:50 Room Air 03/13/18 21:35 2.00 (Samy Bernard) Physical Examination General: Pt awake and alert resting in bed in NAD. Eyes: Pupils equal and sclera anicteric. Resp: CTA bilaterally Heart: NSR no murmurs Abd: Soft positive bs. Skin: No cyanosis or erythema. Muscle: Moves LEs with good strength. Neuro: Pt awake and alert. Follows commands well. Face symmetric. Pupils equal. (Samy Bernard) Lab, Micro, Other Results Last Impressions Chest X-Ray 03/13/18 0600 Signed Impressions: CONCLUSION: No acute cardiopulmonary disease Chest CT 03/11/18 0000 Signed Impressions: CONCLUSION: 1. Minimal fractures of T11 and T12 vertebral bodies. 2. Fracture of the left L1 transverse process. 3. Dependent bibasilar densities likely atelectasis. Abdomen/Pelvis CT 03/11/18 0000 Signed Impressions: CONCLUSION: 1. Fractures of T11, T12, L1 and L2 vertebral bodies. Fracture is more sensiti ve of L2 vertebral body. 2. Mild hydronephrosis on the left secondary to left proximal ureteral calculu s measuring 9 x 7 mm. 3. Mild distention of the urinary bladder. 4. Multiple left-sided transverse process fractures. (Samy Bernard) Medical Decision Making Impression and Plan A: 62 y/o M with L2 vertebral body fracture with retropulsion and moderate spinal stenosis. There is about 30% of vertebral body height loss noted with preserved facets. There is T11-T12 and L1 to body fractures without retropulsion. There is mild L1 superior endplate compression. He is neurologically intact. P: Bedrest with spinal logroll precautions. Continue with Custom TLSO brace when he is out of bed with the brace on prior to sitting position. We will obtain an upright x-ray with brace to ensure no significant vertebral height collapse or kyphosis with axial loading. Patient at this time prefers conservative management. Continue with DVT prophylaxis and gastrointestinal stress ulcer prophylaxis (Samy Bernard) Attending Statement The exam, history, and the medical decision-making described in the above note were completed with the assistance of the mid-level provider. I reviewed and agree with the findings presented. I attest that I had a [id number] encounter with the patient on the same day, and personally performed and documented my assessment and findings in the medical record. Stood up with a custom TLSO brace on with no neurologic deficits. Upright lumbar spine x-ray with no kyphosis. We will continue with conservative management of thoracolumbar vertebral body fractures as per the patients preference. Discussed importance of compliance with the brace use for the next 4 months. Discussed with nursing staff. (Román Hdez MD) Samy Bernard Mar 14, 2018 10:34 Román Hdez MD Mar 14, 2018 15:39
[2018-03-14] MEDS ORDERED: OXYC1TAB63 PO (11:19)
[2018-03-14] MEDS: ENOXAPARIN SODIUM 40 MG/0.4 ML SYRINGE SQ SCH (11:46)
--- NOTE | 2018-03-14 15:19 | RADRPT ---
EXAM DATE: 03/14/2018 2:36 PM EDT AGE/SEX: 62 years / Male INDICATIONS: Low back pain, fracture. CLINICAL DATA: This is the patient's subsequent encounter. Patient reports that signs and symptoms h ave been present for 3 days and indicates a pain score of 10/10. MEDICAL/SURGICAL HISTORY: None. None. COMPARISON: No prior exams available for comparison. FINDINGS: There is fracturing of the L2 vertebral body. There is a prominent concave deformity superiorly. Ther e appears to be a more vertical oriented fracture anteriorly through the inferior endplate. The poste rior aspect of the L2 vertebral body appears grossly aligned. The midportion of the L2 vertebral body has lost at least 80% of its original height. There is very some loss of height and concatenated the superior aspect of L1. There is rudimentary S1/S2 disc level. This a normal transitional variant. CONCLUSION: Acute appearing fracturing at the L2 level Electronically signed by: Royal Quintanilla MD 03/14/2018 3:17 PM EDT
[2018-03-15] VITALS (9 sets, daily range): BP systolic 122–151; BP diastolic 75–84; PULSE 95–104; RESP 16–18; TEMP 97.2–98.6; O2SAT 94–97
--- NOTE | 2018-03-15 08:06 | HHI.PR ---
Subjective Subjective Notes Note for 03/14/2018 - Late entry PTD: 3 No complaints offered. Pt is asking when he can go home. Objective Vitals/I&O Vital Signs Date Time Temp Pulse Resp B/P (MAP) Pulse Ox O2 Delivery O2 Flow Rate FiO2 03/15/18 04:07 95 03/15/18 03:55 97.2 18 142/77 (98) 97 03/14/18 22:01 Nasal Cannula 2.00 Radiology Chest X-Ray 03/13/18 0600 Signed Impressions: CONCLUSION: No acute cardiopulmonary disease Narrative Exam GENERAL: This is a 62 year old male lying in bed. No distress noted. SKIN: Warm and dry. HEAD: Atraumatic. Normocephalic. EYES: PERRLA ENT: No nasal bleeding or discharge. Mucous membranes pink and moist. NECK: Trachea midline. No JVD. CARDIOVASCULAR: Regular rate and rhythm. RESPIRATORY: No accessory muscle use. Lungs are clear to auscultation. Breath sounds equal bilaterally. No distress or dyspnea. GASTROINTESTINAL: BS + x 4 quads. Abdomen soft, non-tender, nondistended. MUSCULOSKELETAL: Extremities without cyanosis, or edema. + peripheral pulses x 4 extremities. Warm with good capillary refill and sensation. MAEW and to command. NEUROLOGICAL: Awake and alert. Normal speech and pattern. A/P Problem List: (1) Right scapula fracture ICD Codes: S42.101A - Fracture of unspecified part of scapula, right shoulder, initial encounter for closed fracture Status: Acute (2) T11 vertebral fracture ICD Codes: S22.089A - Unspecified fracture of T11-T12 vertebra, initial encounter for closed fracture Status: Acute (3) T12 vertebral fracture ICD Codes: S22.089A - Unspecified fracture of T11-T12 vertebra, initial encounter for closed fracture Status: Acute (4) L1 vertebral fracture ICD Codes: S32.019A - Unspecified fracture of first lumbar vertebra, initial encounter for closed fracture Status: Acute (5) L2 vertebral fracture ICD Codes: S32.029A - Unspecified fracture of second lumbar vertebra, initial encounter for closed fracture Status: Acute (6) Multiple transverse process fractures Status: Acute Assessment and Plan [place]: This is a 62-year-old male who sustained a fall from a ladder. He was a trauma transfer. INJURIES: RIGHT scapula fx ?LEFT scapula fx T11, T12, L1 & L2 vertebral body fx L2 extensive fx w/ retropulsion of posterior fragments and 50% spinal canal compromise. L1-L4 transverse process fx on LEFT PMHx: Smoker. Procedures: Consults: Neurosurgery. Orthopedics. Case management. Diet: Regular diet. Tolerating po diet. Encourage good po intake with each meal. Pulmonary: Encourage good pulmonary toileting. IS at bedside and pt encouraged to use. Rationale for use explained to patient, and verbalized understanding. PAIN Management: Percocet to 5- 10mg q 4h. Morphine 4 mg q 3h for breakthrough pain. Activity: OOB. Log roll to apply TLSO brace. PT and OT ordered. (WBS? - sling) TLSO brace obtained. L-spine Xray obtained with 80% loss of height at L2. GI prophylaxis: Pepcid 20 mg BID PO Bowel regimen: Nicole-colace. MOM. Lactulose PRN. Senna PRN. Bisacodyl PRN. LBM: 0 DVT prophylaxis: Mechanical VTE with SCDs. Chemical management with Lovenox 40 mg QD SQ. DC Planning: Case management consulted for assistance with final discharge disposition. Emotional support provided to patient at bedside and plan of care discussed. Anticipate DC today or tomorrow depending of NS clearance. Discussed with RN at bedside. Discussed pt condition and plan of care with collaborating trauma surgeon. Patient is hemodynamically stable and being managed on the med/surg floor. The trauma team will round each day, and evaluate plan of care on a daily basis. RIGHT scapula fx ?LEFT scapula fx Orthopedics consulted and assisting in management care Supportive care Pain management Sling to right upper extremity for comfort and support PT and OT ordered Await weightbearing status from orthopedics to bilateral upper extremities T11, T12, L1 & L2 vertebral body fx L2 extensive fx w/ retropulsion of posterior fragments and 50% spinal canal compromise. L1-L4 transverse process fx on LEFT Neurosurgery consulted and assisting in management care Supportive care Pain management L spine Xray ordered - 80 % loss of height of L2 Currently on bedrest PT and OT ordered Logroll to apply brace TLSO brace ordered and received PT/OT to evaluate for home needs. Problem Qualifiers (1) Right scapula fracture: Qualified Codes: S42.101A - Fracture of unspecified part of scapula, right shoulder, initial encounter for closed fracture (2) T11 vertebral fracture: Qualified Codes: S22.089A - Unspecified fracture of t11-T12 vertebra, initial encounter for closed fracture (3) T12 vertebral fracture: Qualified Codes: S22.089A - Unspecified fracture of t11-T12 vertebra, initial encounter for closed fracture (4) L1 vertebral fracture: Qualified Codes: S32.019A - Unspecified fracture of first lumbar vertebra, initial encounter for closed fracture (5) L2 vertebral fracture: Qualified Codes: S32.029A - Unspecified fracture of second lumbar vertebra, initial encounter for closed fracture Jennifer Santana Mar 15, 2018 08:06
[2018-03-15] MEDS: SODIUM CHLORIDE 0.9% FLUSH 10 ML FLUSH IV FLUSH SCH (09:00)
[2018-03-15] MEDS: oxyCODONE/ACETAMINOPHEN 10 MG/325 MG TAB PO PRN ×2 (09:09→15:03)
[2018-03-15] MEDS: LACTULOSE SYRUP 20 GM/30 ML CUP PO SCH (09:09)
[2018-03-15] MEDS: FAMOTIDINE 20 MG TAB PO SCH (09:09)
[2018-03-15] MEDS: DOCUSATE SODIUM 50 MG/SENNA 8.6 MG TAB PO SCH (09:09)
[2018-03-15] MEDS: MAGNESIUM HYDROXIDE SUSP 30 ML CUP PO SCH (09:09)
--- NOTE | 2018-03-15 11:31 | HHI.NSPN ---
(Samy Bernard) History Chief Complaint: Low back pain controlled with bedrest. (Samy Bernard) Interval History 62-year-old gentleman who was brought to [facility] for trauma evaluation after a fall from a ladder/roof. He was initially seen at [facility] and found to have thoracic and lumbar fractures and transferred to [facility] trauma surgery service and neurosurgery consulted this morning. He is also awaiting orthopedic evaluation for possible right scapular fracture. His main complaint is right shoulder and scapular area pain as well as low back pain. He denies any numbness or paresthesias in the upper lower extremities. No weakness in the legs and no incontinence. He has been on bedrest. 03/13: Pt awake and alert. low back pain controlled with bed rest. No pain radiating into the LEs. Follows commands. Waiting on TLSO brace. 03/14/18: Pt awake and alert. Low back pain rates at 7/10 without radiculopathy in LEs. He has been up with brace on, had some dizziness. 03/15: Pt awake and alert. Complains of low back pain 7/10. Pt wants to continue with nonsurgical management. He states he will wear the TLSO brace. He denies radiculopathy in LE. No paresthesias in LEs. He has right trapezius and shoulder discomfort. (Samy Bernard) Review of Systems General: Negative for: fever, chills, insomnia Respiratory: Negative for: shortness of breath, cough, sputum Cardiovascular: Negative for: chest pain Gastrointestinal: Negative for: nausea, vomitting, diarrhea, constipation ( Samy Bernard) Exam Results Vital Signs Date Time Temp Pulse Resp B/P (MAP) Pulse Ox O2 Delivery O2 Flow Rate FiO2 03/15/18 11:05 16 03/15/18 09:00 95 Nasal Cannula 03/15/18 09:00 95 03/15/18 08:00 98.6 135/84 (101) 03/14/18 22:01 2.00 Intake and Output 03/15/18 03/15/18 03/16/18 08:00 16:00 00:00 Intake Total 420 ml Output Total 320 ml Balance 100 ml (Samy Bernard) Physical Examination General: Pt awake and alert resting in bed in NAD. Eyes: Pupils equal and sclera anicteric. Resp: CTA bilaterally Heart: NSR no murmurs Abd: Soft positive bs. Skin: No cyanosis or erythema. Muscle: Moves LEs with good strength. Neuro: Pt awake and alert. Follows commands well. Face symmetric. Pupils equal. Answers questions appropriately. (Samy Bernard) Lab, Micro, Other Results Last Impressions Lumbar Spine X-Ray 03/14/18 0000 Signed Impressions: CONCLUSION: Acute appearing fracturing at the L2 level Chest X-Ray 03/13/18 0600 Signed Impressions: CONCLUSION: No acute cardiopulmonary disease Chest CT 03/11/18 0000 Signed Impressions: CONCLUSION: 1. Minimal fractures of T11 and T12 vertebral bodies. 2. Fracture of the left L1 transverse process. 3. Dependent bibasilar densities likely atelectasis. Abdomen/Pelvis CT 03/11/18 0000 Signed Impressions: CONCLUSION: 1. Fractures of T11, T12, L1 and L2 vertebral bodies. Fracture is more sensiti ve of L2 vertebral body. 2. Mild hydronephrosis on the left secondary to left proximal ureteral calculu s measuring 9 x 7 mm. 3. Mild distention of the urinary bladder. 4. Multiple left-sided transverse process fractures. (Samy Bernard) Medical Decision Making Impression and Plan A: 62 y/o M with L2 vertebral body fracture with retropulsion and moderate spinal stenosis. There is about 30% of vertebral body height loss noted with preserved facets. There is T11-T12 and L1 to body fractures without retropulsion. There is mild L1 superior endplate compression. He is neurologically intact. P: Bedrest with spinal logroll precautions. Continue with Custom TLSO brace when he is out of bed with the brace on prior to sitting position. Patient at this time prefers conservative management. He can be discharged home. Pt instructed to have the brace on prior to sitting, standing, or walking and states he understands. He will follow up in 6 weeks with follow up x-rays and understands his follow up also. (Samy Bernard) Attending Statement The exam, history, and the medical decision-making described in the above note were completed with the assistance of the mid-level provider. I reviewed and agree with the findings presented. I attest that I had a [id number] encounter with the patient on the same day, and personally performed and documented my assessment and findings in the medical record. (Román Hdez MD) Samy Bernard Mar 15, 2018 11:31 Román Hdez MD Mar 15, 2018 12:41
[2018-03-15] MEDS: ENOXAPARIN SODIUM 40 MG/0.4 ML SYRINGE SQ SCH (12:32)
--- NOTE | 2018-03-15 13:58 | HHI.DS ---
Discharge Summary Admission Date Mar 12, 2018 at 01:09 Discharge Date: Mar 15, 2018 Admitting Diagnosis Trauma (1) Right scapula fracture ICD Codes: S42.101A - Fracture of unspecified part of scapula, right shoulder, initial encounter for closed fracture Diagnosis: Principal Status: Acute (2) T11 vertebral fracture ICD Codes: S22.089A - Unspecified fracture of T11-T12 vertebra, initial encounter for closed fracture Diagnosis: Principal Status: Acute (3) T12 vertebral fracture ICD Codes: S22.089A - Unspecified fracture of T11-T12 vertebra, initial encounter for closed fracture Diagnosis: Principal Status: Acute (4) L1 vertebral fracture ICD Codes: S32.019A - Unspecified fracture of first lumbar vertebra, initial encounter for closed fracture Diagnosis: Principal Status: Acute (5) L2 vertebral fracture ICD Codes: S32.029A - Unspecified fracture of second lumbar vertebra, initial encounter for closed fracture Diagnosis: Principal Status: Acute (6) Multiple transverse process fractures Diagnosis: Principal Status: Acute CBC/BMP: 03/13/18 0504 03/13/18 0504 Significant Findings Laboratory Tests Test 03/13/18 05:04 Red Blood Count 4.05 MIL/MM3 (4.50-5.90) Hemoglobin 12.7 GM/DL (13.0-17.0) Hematocrit 36.9 % (39.0-51.0) Neutrophils (%) (Auto) 88.9 % (16.0-70.0) Lymphocytes (%) (Auto) 5.7 % (9.0-44.0) Neutrophils # (Auto) 7.8 TH/MM3 (1.8-7.7) Lymphocytes # (Auto) 0.5 TH/MM3 (1.0-4.8) Blood Urea Nitrogen 20 MG/DL (7-18) Random Glucose 127 MG/DL (74-106) Total Protein 6.2 GM/DL (6.4-8.2) Albumin 3.0 GM/DL (3.4-5.0) Calcium Level 8.2 MG/DL (8.5-10.1) Aspartate Amino Transf (AST/SGOT) 39 U/L (15-37) Alanine Aminotransferase (ALT/SGPT) 79 U/L (12-78) Estimat Glomerular Filtration Rate 84 ML/MIN (>89) Imaging Last Impressions Lumbar Spine X-Ray 03/14/18 0000 Signed Impressions: CONCLUSION: Acute appearing fracturing at the L2 level Chest X-Ray 03/13/18 0600 Signed Impressions: CONCLUSION: No acute cardiopulmonary disease Chest CT 03/11/18 0000 Signed Impressions: CONCLUSION: 1. Minimal fractures of T11 and T12 vertebral bodies. 2. Fracture of the left L1 transverse process. 3. Dependent bibasilar densities likely atelectasis. Abdomen/Pelvis CT 03/11/18 0000 Signed Impressions: CONCLUSION: 1. Fractures of T11, T12, L1 and L2 vertebral bodies. Fracture is more sensiti ve of L2 vertebral body. 2. Mild hydronephrosis on the left secondary to left proximal ureteral calculu s measuring 9 x 7 mm. 3. Mild distention of the urinary bladder. 4. Multiple left-sided transverse process fractures. PE at Discharge GENERAL: This is a 62 year old male OOB in a chair. No distress noted. SKIN: Warm and dry. HEAD: Atraumatic. Normocephalic. EYES: PERRLA ENT: No nasal bleeding or discharge. Mucous membranes pink and moist. NECK: Trachea midline. No JVD. CARDIOVASCULAR: Regular rate and rhythm. RESPIRATORY: No accessory muscle use. Lungs are clear to auscultation. Breath sounds equal bilaterally. No distress or dyspnea. GASTROINTESTINAL: BS + x 4 quads. Abdomen soft, non-tender, nondistended. MUSCULOSKELETAL: TLSO brace in place. Extremities without cyanosis, or edema. + peripheral pulses x 4 extremities. Warm with good capillary refill and sensation. MAEW and to command. NEUROLOGICAL: Awake and alert. Normal speech and pattern. Hospital Course [place]: This is a 62-year-old male who sustained a fall from a ladder. He was a trauma transfer. INJURIES: RIGHT scapula fx ?LEFT scapula fx T11, T12, L1 & L2 vertebral body fx L2 extensive fx w/ retropulsion of posterior fragments and 50% spinal canal compromise. L1-L4 transverse process fx on LEFT PMHx: Smoker. Procedures: Consults: Neurosurgery. Orthopedics. Case management. NS will be managing the patient conservatively and non-surgical. TLSO brace at all times when OOB. NS has cleared the pt for DC. Requested RN to call orthopedics (as there is no note regarding care, injuries or follow up in the pt chart) Orthopedics have given the order that the pt is clear for DC. Bilateral clavicle fx, however nonsurgical. NWB RIGHT scapula only and sling at all times. The patient is now tolerating a po diet. Eating and drinking well. Pain is being managed well with PO pain medications, and patient is being a provided with a script for pain meds upon discharge. (NO driving while taking narcotic pain medication enforced to patient.) We have recommended to patient to continue with stool softeners while taking narcotic pain medications to prevent constipation. Pt has been participating in PT and OT while admitted at [facility] and has been ambulating with their assistance and independently . Pt only has coverage for [facility] nursing. Pt can only receive PT/OT outpatient - REFERRAL provided and he will follow up in [place] where he lives. All follow up appointments have been provided and discussed with the patient. It is recommended that the patient keeps all his follow up appointments for continued recovery. Patient's condition and plan of care discussed with collaborating trauma surgeon. He is agreeable to plan for discharge today. Therefore, the patient is stable to be safely discharged home from a trauma surgery standpoint. Thank you for allowing us to participate in his care. We wish Lawrence the best in his recovery. RIGHT scapula fx ?LEFT scapula fx Orthopedics consulted and assisting in management care Supportive care Pain management Sling to right upper extremity for comfort and support PT and OT ordered NWB RUE Clear for DC from orthopedics F/U outpatient T11, T12, L1 & L2 vertebral body fx L2 extensive fx w/ retropulsion of posterior fragments and 50% spinal canal compromise. L1-L4 transverse process fx on LEFT Neurosurgery consulted and assisting in management care Supportive care Pain management Currently on bedrest PT and OT ordered Logroll only TLSO brace ordered Once pt obtains a brace, he may be OOB with brace. Then he can be evaluated by PT/OT for home needs. Cleared by NS for DC F/U outpatient TLSO brace at all times when OOB. Pt Condition on Discharge: Stable Discharge Disposition: Disch w/ Home Health Serv Discharge Instructions DIET: Follow Instructions for: As Tolerated, No Restrictions Activities you can perform: Non Weight Bearing Activities to Avoid: Lifting/Bending, Weight Bearing, Strenuous Activity, Driving Other Activity Instructions: NWTom RUE TLSO brace at all times when out of bed. Jennifer Santana Mar 15, 2018 13:58
--- NOTE | 2018-03-16 07:42 | MB ---
cc: Mukund Anderson MD DATE: 03/12/2018 REASON FOR CONSULTATION: Right scapular pain. HISTORY OF PRESENT ILLNESS: Mr. Arboleda is a 62-year-old male who presented to the [facility] after a fall off a ladder. He is complaining of back pain and right shoulder pain. He states the pain is a significant. He was seen by the trauma team and admitted. The patient is currently seen in his hospital room. He states his right shoulder pain is mainly on the posterior aspect in the region of the scapula. He denies any numbness or tingling from this area. He denies any radiating pain. The pain is significant. It is aggravated with range of motion exercises. Alleviating factors include medication. He also has spine pain, which is being evaluated by neurosurgery. PAST MEDICAL HISTORY: No significant problems noted. PAST MEDICAL HISTORY: Negative. SOCIAL HISTORY: Admits to tobacco use. Denies alcohol abuse. MEDICATIONS: Reviewed in electronic medical records. ALLERGIES: NO KNOWN DRUG ALLERGIES. FAMILY HISTORY: Noncontributory. REVIEW OF SYSTEMS: A 10-point review of systems was performed, negative for what is mentioned in the HPI. PHYSICAL EXAMINATION: GENERAL: A 62-year-old male lying in bed, awake, no acute distress. He does have ice pack on his right shoulder. VITAL SIGNS: Temperature 97.8, pulse 109, respiratory rate 18, blood pressure 122/89, pulse oximetry 97 on room air. HEAD, EARS, EYES, NOSE, THROAT: Normocephalic, atraumatic. No scleral icterus. NECK: Supple, nontender. No JVD. LUNGS: Clear to auscultation bilaterally. No rales or rhonchi. HEART: Regular rate and rhythm. No murmurs, gallops or rubs. ABDOMEN: Soft, nontender. EXTREMITIES: Bilateral lower extremities are neurovascularly intact. Negative Homans. Sensation is intact. He has full function of bilateral lower extremities. His left upper extremity is also within normal limits. His right upper extremity has tenderness to palpation over the region of the scapula. He has some swelling and bruising in this area as well. He does have discomfort with range of motion of the right shoulder. Limited motion due to a fracture of the scapula. He has appropriate pattern chart writer strength bilateral hands, 2+ radial pulse. Neurovascular sensation intact distally. LABORATORY DATA: White blood cell count 13.1, hemoglobin 14.7, hematocrit 42, platelet count is 207. IMAGING STUDIES: He has a chest x-ray taken at [facility]. No pneumothorax. He does have scapular fracture on the right side. ASSESSMENT AND PLAN: A 62-year-old male status post fall off ladder, sustaining fractures of T11 through L2 managed by neurosurgery. He also sustained a right scapular fracture. Discussed diagnosis and treatment options with the patient. Recommend nonoperative management. We will order a sling for his right upper extremity. He is to remain nonweightbearing with limited range of motion on the right upper extremity. The patient may follow up with the undersigned in approximately 2 weeks upon discharge. Once again, his thoracic and lumbar spine injuries are being managed by neurosurgery. Thank you for this consultation. Patient's case was discussed with Dr. Mukund Anderson. Dictated by BRITTNY Spivey MD ODETTE Loera/TRISTEN , 11:31 AM , 12:59 PM
== END 2018-03-15 18:18 | disposition home health service (06) | DRG 552 ==
LOC: NEPC 20:51 → NEDA 03-12 01:09 → N06A 03-12 02:10
PROVIDERS: ADMIT Surgery; ATTEND Surgery
DX: S22.089A Unspecified fracture of T11-T12 vertebra, initial encounter for closed fracture (principal); S32.019A Unspecified fracture of first lumbar vertebra, initial encounter for closed fracture; S32.029A Unspecified fracture of second lumbar vertebra, initial encounter for closed fracture; N13.2 Hydronephrosis with renal and ureteral calculous obstruction; S32.039A Unspecified fracture of third lumbar vertebra, initial encounter for closed fracture; S32.049A Unspecified fracture of fourth lumbar vertebra, initial encounter for closed fracture; S42.101A Fracture of unspecified part of scapula, right shoulder, initial encounter for closed fracture; W11.XXXA Fall on and from ladder, initial encounter; F17.210 Nicotine dependence, cigarettes, uncomplicated; S42.102A Fracture of unspecified part of scapula, left shoulder, initial encounter for closed fracture
CPT/HCPCS: 71045; 71260; 72100; 74177; 80048; 80053; 80076; 85025; 93005; 94150; 96374; J1650; J2270; J7030; L0484; Q9967